=== PATIENT | female | born 1975 | race Caucasian/White ===

== ENCOUNTER 2023-08-08 15:17 | Outpatient (CLI) | payer OTHER, SELFPAY ==
--- OUTSIDE RECORDS SUMMARY | 2023-08-08 15:20 | XMS_ITS | Patient Health Record ---
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 Name Role Phone None, No PCP Primary Care Provider UnavailRadha Pena Unavailable [phone] Orion Munoz Unavailable [phone] Yu Meeks Unavailable ALLERGIES Allergen (clinical drug ingredient) Drug/Non Drug Allergy documented on EMR Reaction Allergy Type Onset Date Status Tylenol Unknown Drug Allergy Active hydrocodone Hydrocodone Unknown Drug Allergy Act ivan morphine Morphine Unknown Drug Allergy Active RESULTS Component Value Reference Range Notes CA 125 (Insurance bill ONLY) Reviewed date:03/29/2023 08:46:41 AM Interpretation: Performing Lab:[facility] [address], [place] [id number] Kyle Zimmerman Notes/Report: CA 125 19 <35 U/mL This test was performed using the Siemens Chemiluminescent method. Values obtained from different assay methods cannot be used interchangeably. CA 125 levels, regardless of value, should not be interpreted as absolute evidence of the presence or absence of disease. T4, FREE Reviewed date:07/29/2023 08:01:17 AM Interpretation: Performing Lab:[facility], [place] CerratoAivtDG[address] Kyle Zimmerman Notes/Report: 0; 0; 0 T4, FREE 1.0 0.8-1.8 ng/dL TSH Reviewed date:07/29/2023 08:02:26 AM Interpretation: Performing Lab:[facility] [address], [place] CerratoOgpgFE[address] Kyle Zimmerman Notes/Report: 0; 0; 0 TSH 1.01 Reference Range > or = 20 Years 0.40-4.50 Ranges First trimester 0.26-2.66 Second trimester 0.55-2.73 Third trimester 0.43-2.91 T3, FREE Reviewed date:07/29/2023 08:02:08 AM Interpretation: Performing Lab:[facility], [facility] [address], [place] MascorroQfwjCA[address] Kyle Zimmerman Notes/Report: 0; 0; 0 T3, FREE 3.2 2.3-4.2 pg/mL REASON FOR REFERRAL Reason [facility]^ 11.15 Diagnosis 1 Pelvic pain (R10.2) Referral Organization [facility] Referring Provider First Name Yu Referring Provider Last Name Rex suazo 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 please refer to [facility]. Andrés WILSON Andrea 07/29/2023 09:01:55 AM PRIVATE CLIENT ADVISOR > Referral uploaded and send to [facility] P:[phone] F:[phone] Andrea 08/07/2023 09:52:10 AM >Referral had to be sent to the correct part of the clinic- faxed to the correct area Referral Priority Routine MEDICATIONS Medication SIG (Take, Route, Frequency, Duration) Notes Start Date End Date Status Norethindrone 0.35 MG 1 tablet Orally On ce a day Active buPROPion HCl ER (XL) 150 MG 1 tablet in the morning Orally Once a day Active Sertraline HCl 100 MG 1 tablet Orally On ce a day Active SOCIAL HISTORY Tobacco Use: Social History Observation Description Date Details (start date - stop date) Current Smoker NA - NA Sex Assigned At : Social History Observation Description Sex Assigned At Unknown Tobacco Use/Smoking Question Answer Notes Are you a current every day smoker PROBLEMS Problem Type ICD Code Onset Dates Problem Status W/U Status Risk SNOMED Code Notes Problem Endometriosis (N80.9) Active confirmed 168049910 Problem Ovarian cyst, left (N83.202) Active confirmed Cyst of left ovary (619899705865 62672) VITAL SIGNS Blood pressure diastolic 64 mm Hg 07/29/2023 Height 62.5 in 07/29/2023 Blood pressure systolic 90 mm Hg 07/29/2023 Weight 132 lbs 07/29/2023 BMI 23.76 kg/m2 07/29/2023 Encounters Encounter Location Date Provider Diagnosis [facility] [address] [place] [phone] 03/14/2023 Radha Hitchcock [facility] [address] [place] [phone] 03/14/2023 Radha Hitchcock [facility] [address] [place] [address] 04/02/2023 Yu Angel [address] [phone] 03/20/2023 Orion Munoz Pelvic pain R10.[address] [address] 03/20/2023 Christalexia Munoz Ovarian mass, left N83.8 [facility] [address] [place] [address] 03/20/2023 Christjonaher Alexander Ovarian cyst, left N83.202 [facility] [address] [facility] [address] [place] [address] 04/10/2023 Christalexia Munoz Acute pelvic pain R10.2 and Mass of left ovary N83.[address] [address] 04/24/2023 Christopher Alexander Postop check Z09 [facility] [address] [place] [address] 07/25/2023 Yu Angel Weight gain R63.5 ; Endometriosis N80.9 and Pelvic pain R10.2 [facility] [address] [place] [address] 07/26/2023 Yubarbara Angel Pelvic pain R10.2 [facility] [address] [facility] [place] [address] 07/26/2023 Yu Angel Weight gain R63.5 [facility] [address] [place] [address] 07/29/2023 Yu Angel Female pelvic pain R10.2 and Endometriosis N80.9 [facility] [address] [place], [place] [phone] 03/20/2023 Orion Munoz [facility] [address] [place] [address] 07/25/2023 Yu Lopezrony Galeanobharat [facility] [address] [place], [place] [phone] 07/29/2023 Yu Jessicarony Angel [facility] [address] [place], [place] [phone] 08/05/2023 Yu Lopezrony Jeanne [address] [place] [phone] 03/11/2023 Radha Hitchcock [facility] [address] [place] [address] 03/25/2023 Yu Lopezrony Galeanobharat [facility] [address] [place] [address] 07/29/2023 Yu Angel ASSESSMENTS Encounter Date Diagnosis Assessment Notes Treatment Notes Treatment Clinical Notes 04/10/2023 Acute pelvic pain (ICD-10 - R10.2) 04/10/2023 Mass of left ovary (ICD-10 - N83.8) 04/24/2023 Postop check (ICD-10 - Z09) Interval history and symptoms reviewed. Exam findings reviewed with patient. Pathology result discussed with patient. No restrictions at this time. RTC as needed. 07/25/2023 Weight gain (ICD-10 - R63.5) 07/25/2023 Endometriosis (ICD-10 - N80.9) 07/26/2023 Pelvic pain (ICD-10 - R10.2) 07/26/2023 Weight gain (ICD-10 - R63.5) 07/29/2023 Endometriosis (ICD-10 - N80.9) 07/29/2023 Female pelvic pain (ICD-10 - R10.2) 03/20/2023 Pelvic pain (ICD-10 - R10.2) 03/20/2023 Ovarian mass, left (ICD-10 - N83.8) History reviewed. CT and US findings discussed with patient. Will order CA125 level. If elevated will refer patient to [facility] for further evaluation. If CA125 level within normal limits, will proceed to OR for laparoscopic left oophorectomy. Risks and benefits of the procedure were discussed including, but not limited to, bleeding, infection, damage to bowel, bladder, ureters, or other surrounding abdominal/pelvic organs. Patient will need preoperative clearance by her PCP. energy scheduler to call patient to set up the procedure. 03/20/2023 Ovarian cyst, left (ICD-10 - N83.202) 07/25/2023 Pelvic pain (ICD-10 - R10.2) 07/25/2023 Other 1. Discussed surgery and pathology- disc the endometriosis portion of the pathology and that that could be causing pain. She isn't taking control at this time. Discussed the different options including: pills, nuvaring, IUD, nexplanon. She is leaning toward the nuvarign at this time. 2. Discussed will obtain and ultrasound and after that ultrasound make a plan for follow up and she can discuss what control she desires to pursue. 3. She noticed some weight gain over the last 5 months, will check a thyroid panel today to make sure that isn't an evolving issue for her. >25 minutes with patient, reviewing chart and charting day of appointment 07/29/2023 Other 1. Discussed ultrasound with patient and possible pelvic congestion syndrome 2. Will obtain a pelvic MRI as well for possible planning 3. She is going to continue her ocps at this time 4. DIsc that the ocps wouldn't assist with pain this quickly and will take a couple months >15 minutes with patient and charting day of appointment 03/20/2023 Other Surgery: Laparoscopic left oophorectomy Diagnosis: Pelvic Pain. Left ovarian mass. Surgeon: Alexander Assist: n/a Anesthesia: General Location: [facility] Date: TBD Usual preop instructions and Covid Testing. Will need preop clearance by PCP. * CA125 pending, if elevated will refer to [facility]. PLAN OF TREATMENT No Information Insurance Providers Payer Name Payer Address Payer Phone Subscriber Number Group Number Insured Name Patient Relationship to Insured Coverage Start Date Coverage End Date Critical access hospital [address] [employer]asmyn[employer]ximusVICKI savage [id number] [address] Self - patient is the insured MEDICAL (GENERAL) HISTORY Medical History History ICD Code Carpal Tunnel Syndrome Other infective bursitis, unspecified si te M71.10 KAM (generalized anxiety disorder) F41.1 Chronic post-traumatic stress disorder ( PTSD) F43.12 Depression, unspecified F32.A Chicken Pox Surgical History Surgery Date(Month/Year) 2004 laparoscopic left oophorectomy and lysis of adhesions 03/2023 Hospitalization History Reason Date(Month/Year) childbirth C=Section
--- NOTE | 2023-08-08 15:30 | CRLHL7_ITS ---
For Patients: As a result of the Century Cures Act, medical imaging exams and procedure reports are released immediately into your electronic medical record. You may view this report before your referring provider. If you have questions, please contact your health care provider. INDICATION: Pelvic pain. COMPARISON: None. TECHNIQUE: MRI of the pelvis without and with intravenous contrast; precontrast T1 and T2 weighted imaging; T2 haste imaging; postcontrast imaging in axial, coronal and sagittal projections; 12 cc of dotarem contrast was injected. FINDINGS: The uterus is unremarkable. No adnexal pathology. Prominent vasculature surrounding the uterus; rule out pelvic congestion syndrome. No abnormal pelvic lymphadenopathy. No free fluid identified in the pelvic cul-de-sac. IMPRESSION: 1. Prominent vessel surrounding the uterus; rule out pelvic congestion syndrome. 2. Negative MR of the pelvis without and with intravenous contrast otherwise. Dictated by Devin Castellon MD @ 08/12/2023 3:26:59 PM (Electronically Signed)
== END 2023-08-08 15:18 | disposition home or self-care (01) ==
LOC: MRI 15:18
PROVIDERS: PCP Family Medicine; Visit Provider Obstetrics & Gynecology
DX: R10.2 Pelvic and perineal pain (principal)
CPT/HCPCS: 72197; A9575